=== PATIENT | female | born 1935 | race Caucasian/White ===

== ENCOUNTER → 2019-04-04 09:47 | Outpatient (BNVA) | payer MEDICARE, BC, SELFPAY | PROVIDERS: PCP Internal Medicine; Referring Provider Internal Medicine; Visit Provider Surgery | DX: R10.9 Unspecified abdominal pain (principal); I10 Essential (primary) hypertension; Z90.49 Acquired absence of other specified parts of digestive tract; R19.7 Diarrhea, unspecified | CPT/HCPCS: 99203 ==

== ENCOUNTER 2019-04-14 01:10 | Outpatient (CLI) | payer MEDICARE, BC, SELFPAY ==
--- NOTE | 2019-04-14 08:46 | DI.CT_ITS ---
EXAM: CT ABDOMEN PELVIS W CLINICAL HISTORY: RLQ abdominal wall bulge/ recurrent hernia? R19.0 INTRAABDOMINAL MASS. TECHNIQUE: A CT examination the abdomen and pelvis was carried out with an intravenous injection of 100 cc of Omnipaque 350. COMPARISON: No exams were available for comparison FINDINGS: Small regions of bibasilar basilar atelectasis are demonstrated. The liver is unremarkable. The patie nt is status post cholecystectomy. The patient is status post appendectomy and rectal surgery. The pa ncreas is somewhat atrophic. The spleen is unremarkable. Small left renal cysts are identified. There is no evidence of right or left hydronephrosis. The adrenals are unremarkable. There is no evidence of bowel obstruction. A large right lower quadrant and superior right pelvic hernia is demonstrated a nd appears to represent the cecum and a portion of the distal small bowel. A wire mesh is projected o brien the region of the hernia. The patient appears to be status post hysterectomy. The lumbar spine wi th narrowed vacuum discs at L4-5 and L5-S1. At L1-2, a severely narrowed disc is noted. 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 IMPRESSION: A large right lower quadrant hernia. There is no evidence of incarceration and nothing to suggest an acute inflammatory process. There is no evidence of free fluid or free air in the intraperitoneal spa ce. The bladder is suboptimally dilated but no gross abnormality is seen.
[2019-04-14 09:40] LABS: CREATININE 1.01 mg/dL (0.55-1.02); Estimated GFR 52.48 (mL/min/1.73m2)
[2019-04-14] MEDS: Omnipaque 350 MG/ML 100 ML BTL IV (10:32)
[2019-04-14] MEDS: Normal Saline Flush 10 ML SYR IVP (10:54)
== END 2019-04-14 01:30 ==
PROVIDERS: PCP Internal Medicine; Visit Provider Surgery
DX: R10.31 Right lower quadrant pain (principal); R19.00 Intra-abdominal and pelvic swelling, mass and lump, unspecified site; K45.8 Other specified abdominal hernia without obstruction or gangrene; Z90.49 Acquired absence of other specified parts of digestive tract; Z90.89 Acquired absence of other organs
CPT/HCPCS: 74177; 82565; J3490

== ENCOUNTER → 2019-04-25 09:56 | Outpatient (BNVA) | payer MEDICARE, BC, SELFPAY | PROVIDERS: PCP Internal Medicine; Referring Provider Internal Medicine; Visit Provider Surgery | DX: K46.9 Unspecified abdominal hernia without obstruction or gangrene (principal) | CPT/HCPCS: 99213 ==